=== PATIENT | female | born 1940 | race Caucasian/White ===

== ENCOUNTER 2016-10-11 12:58 | Emergency (ER) | payer OTHER ==
[~2016-10-11] VITALS: Ht 160 cm; Wt 99.8 kg
[~2016-10-11 12:58] MED LIST: OMEPRAZOLE20 M2 PO
--- NOTE | 2016-10-11 13:09 | ED MVC/FALL/TRAUMA COMPLAINT ---
History of Present Illness General Chief Complaint: Low Back Pain/Injury Stated Complaint: FALL,BACK PAIN Source: patient, old records Exam Limitations: no limitations Vital Signs & Intake/Output Vital Signs & Intake/Output Vital Signs Date Time Temp Pulse Resp B/P Pulse O2 O2 Flow FiO2 Ox Delivery Rate 10/11 1444 97.1 67 16 145/62 95 Room Air 10/11 1300 97.4 88 16 164/81 96 Room Air Allergies Coded Allergies: No Known Allergies (10/11/16) Reconcile Medications Omeprazole 20 MG CAPSULE.DR 1 CAP PO DAILY REFLUX (Reported) Tramadol HCl 50 MG TABLET 1-2 TAB PO Q6 PRN pain Triage Note: C/O RIGHT SIDED FLANK/SIDE PAIN S/P FALL 1 WEEK AGO. FALL FROM SEATED POSITION TO GROUND. -LOC-HEADSTRIKE. TYLENOL #3 WITH NO RELIEF. TOOK TRAMADOL WITH MOD RELIEF. PAIN HAS BEEN UNCHANGED Triage Nurses Notes Reviewed? yes HPI: Patient is a 76 year old female presents complaining of severe back pain and right flank pain s/p fall. Patient was getting out of a [place] at a restaurant 7 days ago when she fell. Pain is 5/10 at rest, 10/10 with movement. Patient took Tylenol #3 with no improvement. Took Tramadol 2 days ago with moderate improvement. Patient denies head injury, numbness, weakness, incontinence, hematuria. (LIZZY WALKER) Past History Travel History Traveled to [place] past 21 day No Medical History Any Pertinent Medical History? see below for history Neurological: NONE EENT: NONE Cardiovascular: HIGH CHOLESTEROL Respiratory: NONE Gastrointestinal: NONE Hepatic: NONE Renal: NONE Musculoskeletal: NONE Psychiatric: NONE Endocrine: hypothyroidism Blood Disorders: NONE Cancer(s): NONE DELIVERY MGR/Reproductive: NONE Surgical History Surgical History: cholecystectomy, thyroidectomy, LUMBAR SURGERY Psychosocial History What is your primary language Kazakh Tobacco Use: Quit >30 days ago ETOH Use: occasional use Illicit Drug Use: denies illicit drug use Family History Hx Contributory? No (LIZZY WALKER) Review of Systems Review of Systems Constitutional: Denies: chills, fever. Eyes: Reports: no symptoms. Ears, Nose, Throat, Mouth: Reports: no symptoms. Respiratory: Reports: cough. Denies: short of breath, sputum production. Cardiovascular: Denies: chest pain. Gastrointestinal/Abdominal: Reports: abdominal pain (RIGHT FLANK). Genitourinary: Denies: dysuria, hematuria. Musculoskeletal: Reports: see HPI, back pain. Skin: Reports: no symptoms. Neurological/Psychological: Denies: headache, numbness, paresthesia. (LIZZY WALKER) Physical Exam Physical Exam General Appearance: well developed/nourished, alert, awake Head: atraumatic, normal appearance Eyes: Bilateral: normal appearance, PERRL, EOMI. Ears, Nose, Throat, Mouth: hearing grossly normal, moist mucous membrane Neck: normal inspection, supple, full range of motion, no midline tenderness Respiratory: normal breath sounds, no respiratory distress, lungs clear Cardiovascular: regular rate/rhythm Peripheral Pulses: 2+ dorsalis pedis (R), 2+ dorsalis pedis (L) Gastrointestinal: soft, mild right flank tenderness. no rebound, rigidity or guarding Back: hematoma area of L1 to the right of midline with tenderness. right paraspinal tenderness in the area of L3-L5 Extremities: normal range of motion, nontender bilateral lower extremities Neurologic/Psych: no motor/sensory deficits, awake, alert, oriented x 3, normal gait, negative straight leg raise bilaterally Skin: warm/dry Core Measures ACS in differential dx? No Severe Sepsis Present: No Septic Shock Present: No (LIZZY WALKER) Progress Differential Diagnosis: abd injury, C/T/L spine injury, pelvis injury, retroperitoneal bleed Plan of Care: Laboratory Tests 10/11/16 1323: Urine Color Cancelled, Urine Clarity Cancelled, Urine pH Cancelled, Ur Specific Devils Elbow Cancelled, Urine Protein Cancelled, Urine Ketones Cancelled, Urine Nitrite Cancelled, Urine Bilirubin Cancelled, Urine Urobilinogen Cancelled, Ur Leukocyte Esterase Cancelled, Ur Microscopic Cancelled, Urine Hemoglobin Cancelled, Urine Glucose Cancelled Discussed with Dr. Lema. 1420: Patient resting on stretcher, no apparent distress currently. Awaiting CT scan results. 1500: Results of CT scan discussed with patient. No acute neurologic abnormalities. Appears stable for discharge. Has an appointment with her primary care doctor on . (LIZZY WALKER) Diagnostic Imaging: Viewed by Me: CT Scan. Discussed w/RAD: CT Scan. Radiology Impression: PATIENT: LLOYD DUNNE PRESENT AGE: 76 PATIENT ACCOUNT NO: [id number] : 40 LOCATION: [facility] ORDERING PHYSICIAN: LIZZY JOSEPH SERVICE DATE: 10/11/16 EXAM TYPE: CAT - CT ABD & PELVIS W/O IV CONTRAS EXAMINATION: CT ABDOMEN AND PELVIS WITHOUT CONTRAST CLINICAL INFORMATION: 76-year-old female with history of fall, presented with severe low back pain and right flank pain. COMPARISON: None TECHNIQUE: Multidetector volumetric imaging was performed from the superior aspect of the liver through the pubic symphysis. Sagittal and coronal reformatted images were obtained on the technologist's workstation. DLP: 857.37 mGy-cm. FINDINGS: LUNG BASES: The visualized lung bases are unremarkable. LIVER, GALLBLADDER, AND BILIARY TREE: The liver is normal in size, shape, and attenuation. No focal hepatic lesion or biliary ductal dilatation is present. The gallbladder is surgically absent. PANCREAS: Unremarkable. SPLEEN: Calcified splenic granulomas are noted. ADRENAL GLANDS: Unremarkable. KIDNEYS AND URETERS: Bilateral renal cortical hypodensities are present, measures 3.3 x 3.1 cm at the superior pole of the left kidney with Hounsfield value of 4, consistent with a cyst, measures 2.3 x 2.0 cm with Hounsfield value of 10 at mid anterior cortex of the right kidney, consistent with cyst. There is another exophytic approximately 1.3 cm nodular hypodensity noted at the superior posterior cortex of the right kidney with Hounsfield value of 3, consistent with another cyst. Both renal collecting system and both ureters appear decompressed. BLADDER: Unremarkable. GASTROINTESTINAL TRACT: Colonic diverticulosis related changes are noted within the large bowel, specifically descending and sigmoid colon. Similar lesser diverticulosis related changes are also noted within the transverse colon. The appendix is visualized, appear unremarkable. The small bowel loops are decompressed. The stomach is decompressed. There is a small sliding hiatal hernia noted. ABDOMINAL WALL: No significant hernia is appreciated. LYMPH NODES: Normal. VASCULAR: Diffuse atherosclerotic changes are noted within the aorta and is branches without aneurysm formation. PELVIC VISCERA: There is no pelvic mass present. There is no free fluid and/or free air present. The uterus is likely surgically absent, not visualized. RETROPERITONEUM: Specifically, there is no retroperitoneum, intraperitoneal hematoma identified. OSSEOUS STRUCTURES: No evidence of any compression fracture present within the lumbar spine. Moderate degenerative spondylosis related changes are noted at L4-L5 and significant facet degenerative arthritic changes at L4-L5 and L5-S1 bilaterally. IMPRESSION: 1. No acute intra-abdominal and/or intrapelvic pathology is present. 2. Specifically, no CT evidence of any retroperitoneal, intraperitoneal hematoma or pelvic hematoma visualized. Moderate diffuse osteopenia and multilevel degenerative spondylosis related changes are noted in the spine. 3. Bilateral cortical renal cysts, surgically absent gallbladder and calcified splenic granulomas are also noted. DICTATED BY: DESIREE HUBER MD DATE/TIME DICTATED:1413 RIM FIRE CHARGER OPERATOR:ZAIN DATE/TIME TRANSCRIBED:10/11/161413 CONFIDENTIAL, DO NOT COPY WITHOUT APPROPRIATE AUTHORIZATION. <Electronically signed in Other Vendor System> SIGNED BY: DESIREE HUBER MD 10/11/16 2683 (LIZZY WALKER) Departure Departure Time of Disposition: 1505 Disposition: HOME OR SELF CARE Condition: Stable Clinical Impression Primary Impression: Traumatic hematoma of lower back Secondary Impressions: Lumbar strain Referrals: OSCAR HYDE,THONG FLOR MD,MAnselmo ROBERTO (PCP/Family) Additional Instructions: Rest, apply heat to the affected areas for 20 minutes 4-5 times a day. Follow up with Dr. lFor on as scheduled. Also follow up with your orthopedist if no improvement within 3-5 days. . Departure Forms: Customer Survey General Discharge Information Prescriptions: Current Visit Scripts Tramadol HCl 1-2 TAB PO Q6 PRN pain #20 TAB (LIZZY WALKER) PA/PLANT CHANGER Co-Sign Statement Statement: ED Attending supervision documentation- [X] I saw and evaluated the patient. I have also reviewed all the pertinent lab results and diagnostic results. I agree with the findings and the plan of care as documented in the PA's/PLANT CHANGER's documentation. [X] I have reviewed the ED Record and agree with the PA's/PLANT CHANGER's documentation. [] Additions or exceptions (if any) to the PAs/PLANT CHANGER's note and plan are summarized below: [] (VIV HYDE,KD [place])
[2016-10-11 14:44] VITALS: BP 145/62
--- NOTE | 2016-10-11 14:58 | CT SCAN REPORT ---
EXAMINATION: CT ABDOMEN AND PELVIS WITHOUT CONTRAST CLINICAL INFORMATION: 76-year-old female with history of fall, presented with severe low back pain and right flank pain. COMPARISON: None TECHNIQUE: Multidetector volumetric imaging was performed from the superior aspect of the liver through the pubic symphysis. Sagittal and coronal reformatted images were obtained on the technologist's workstation. DLP: 857.37 mGy-cm. FINDINGS: LUNG BASES: The visualized lung bases are unremarkable. LIVER, GALLBLADDER, AND BILIARY TREE: The liver is normal in size, shape, and attenuation. No focal hepatic lesion or biliary ductal dilatation is present. The gallbladder is surgically absent. PANCREAS: Unremarkable. SPLEEN: Calcified splenic granulomas are noted. ADRENAL GLANDS: Unremarkable. KIDNEYS AND URETERS: Bilateral renal cortical hypodensities are present, measures 3.3 x 3.1 cm at the superior pole of the left kidney with Hounsfield value of 4, consistent with a cyst, measures 2.3 x 2.0 cm with Hounsfield value of 10 at mid anterior cortex of the right kidney, consistent with cyst. There is another exophytic approximately 1.3 cm nodular hypodensity noted at the superior posterior cortex of the right kidney with Hounsfield value of 3, consistent with another cyst. Both renal collecting system and both ureters appear decompressed. BLADDER: Unremarkable. GASTROINTESTINAL TRACT: Colonic diverticulosis related changes are noted within the large bowel, specifically descending and sigmoid colon. Similar lesser diverticulosis related changes are also noted within the transverse colon. The appendix is visualized, appear unremarkable. The small bowel loops are decompressed. The stomach is decompressed. There is a small sliding hiatal hernia noted. ABDOMINAL WALL: No significant hernia is appreciated. LYMPH NODES: Normal. VASCULAR: Diffuse atherosclerotic changes are noted within the aorta and is branches without aneurysm formation. PELVIC VISCERA: There is no pelvic mass present. There is no free fluid and/or free air present. The uterus is likely surgically absent, not visualized. RETROPERITONEUM: Specifically, there is no retroperitoneum, intraperitoneal hematoma identified. OSSEOUS STRUCTURES: No evidence of any compression fracture present within the lumbar spine. Moderate degenerative spondylosis related changes are noted at L4-L5 and significant facet degenerative arthritic changes at L4-L5 and L5-S1 bilaterally. IMPRESSION: 1. No acute intra-abdominal and/or intrapelvic pathology is present. 2. Specifically, no CT evidence of any retroperitoneal, intraperitoneal hematoma or pelvic hematoma visualized. Moderate diffuse osteopenia and multilevel degenerative spondylosis related changes are noted in the spine. 3. Bilateral cortical renal cysts, surgically absent gallbladder and calcified splenic granulomas are also noted.
[2016-10-11] MEDS ORDERED: TRAMADOL HCL50 M1 PO (15:07)
[2016-12-16] MEDS ORDERED: LEVOTHYROXINE100 MC1 PO (13:04)
[2016-12-16] MEDS ORDERED: ASPIRIN EC81 M1 PO (13:04)
[2016-12-16] MEDS ORDERED: CALTRATE 600 +1 EACH PO (13:05)
[2016-12-16] MEDS ORDERED: SIMVASTATIN10 M1 PO (13:05)
[2016-12-16] MEDS ORDERED: ZYRTEC10 M3 PO (13:05)
== END 2016-10-11 15:16 ==
LOC: ERH 12:58
DX: S39.012A Strain of muscle, fascia and tendon of lower back, initial encounter (principal); S30.0XXA Contusion of lower back and pelvis, initial encounter; W19.XXXA Unspecified fall, initial encounter
CPT/HCPCS: 74176

== ENCOUNTER → 2016-12-21 | Day surgery (SDC) | payer OTHER ==
[~2016-12-21] VITALS: Ht 160 cm; Wt 98.4 kg
[~2016-12-21] MED LIST changes: +ASPIRIN EC81 M1 PO; +CALTRATE 600 +1 EACH PO; +LEVOTHYROXINE100 MC1 PO; +SIMVASTATIN10 M1 PO; +TRAMADOL HCL50 M1 PO; +ZYRTEC10 M3 PO
--- NOTE | 2016-12-21 15:15 | Operative Report ---
Operative/Inv Procedure Report Surgery Date: 12/21/16 Name of Procedure: #1 right knee arthroscopic partial medial meniscectomy #2 right tibial plateau stress microfracturing biologic internal fixation/ subchondroplasty Accufill calcium phosphate bone substitute implant right tibia Pre-Operative Diagnosis: #1 right knee medial meniscal tear #2 right knee osteoarthritis primary #3 insufficiency/stress fracture right tibial plateau Post-Operative Diagnosis: Same Estimated Blood Loss: scant Surgeon/Priming Mixture Carrier: OSCAR HYDE,THONG Anesthesia: laryngeal mask airway Implants: Accufill calcium phosphate bone substitute implant Drains: None Specimens: None Tourniquet: None used Complications: None Condition: Stable Operative Indication: Patient is a 76-year-old woman who has a long history of right knee pain. Treatment included activity modification, medication, injection without significant long-term relief. Due to minimal findings on plain x-ray, patient underwent MRI evaluation which revealed's findings consistent with SONK mechanism/stress fracture medial tibial plateau. Patient was treated conservatively with a building construction supervisor brace as well as activity modification. Patient did improve with these conservative measures but experience recurrence of her symptoms 2 months later. Due to the original findings on imaging the MRI was repeated and similar but slightly progressed findings were noted of the medial tibial plateau. Due to these findings and patient's lack of improvement with subsequent treatment similar to her previous experience, she wished to proceed with arthroscopic management of the problem. I do feel that her symptoms were secondary to the meniscal pathology but also the stress fracture/insufficiency findings on MRI of the medial tibial plateau. Therefore I recommended consideration of the subcondroplasty procedure for the abnormal plateau findings. We discussed risks, benefits and expectations of surgical as well as nonsurgical options which included but not limited to persistent knee pain, need for subsequent surgery, progression of her osteoarthritis, anesthesia risks. She wished to proceed with the arthroscopic management the problem as well as evaluation for the possibility of the subchondral portion of the procedure. Operative/Procedure Note Note: Patient was brought to the operating room and transferred to the operating table. Once under appropriate anesthesia the right lower extremity was prepped and draped in standard fashion. Preoperative IV antibiotics were given prophylactically. Standard infrapatellar lateral portal site was established. Scope was inserted. Patellofemoral compartment was evaluated area chondromalacia of the patellofemoral compartment noted grade 2 changes. I entered the medial compartment. No evidence of pathologic plica. The medial meniscus was evaluated from anterior horn to posterior horn under direct visualization. There appeared to be a posterior horn tear which was complex and degenerative in nature. I established a medial infrapatellar portal site and was able to directly probe and confirm the presence of the medial meniscal tear. I used straight biters followed by shaver to complete the partial medial meniscectomy. There was grade 3-4 chondral changes along the posterior medial aspect of the tibial plateau there was no unstable articular cartilage in this area. I entered the notch the ACL was found to be intact. Leg was placed into a figure 4 position and the lateral compartment was visualized which appeared to be intact as well no evidence of lateral meniscal of allergy or any significant chondral changes in the lateral compartment. I went up the lateral gutter and no evidence of loose bodies. I should mention there was a fairly large chondral fragment that was floating in the supra patellar pouch. I went up to the supra patellar pouch and was able to locate this fragment and using the shaver was able to break it up and removed from the knee. Copious irrigation the knee followed. At this stage I turned my attention to the stress fracture of the medial tibia. Using fluoroscopic live imaging and correlating with the position of the lesion on MRI I was able to locate in place the 3-hole side injecting Accuport drill cannula/leave in position for injection of the area in question on MRI. I visualized in both AP and lateral planes. I was satisfied with position of the port after making a small stab incision to insert the port and the cannula all the way down to bone on the medial aspect of the plateau. A total of 5 mL of the Accufill bone substitute implant was injected a different trajectories through this 3-hole side port. As the injection was done it was visualized on fluoroscopic imaging. The area of injection could be confirmed with detail. The cannula and drill itself was placed proximally a centimeter from the subchondral bone. Once the bone substitute implant had been injected, the remaining liquid substitute was pushed through the cannula and allowed to sit there for 10 minutes. This allowed the implant to harden in the subchondral area. Once this was done, I reinserted scope through the lateral portal and was able to visualize the medial compartment to make sure there was no extravasation of the bone substitute implant into the joint space. The area in question was visualized directly and probed. I was satisfied with the appearance. Took the knee through range of motion after fluid and inserts were removed. Smooth range of motion was noted. Fluoroscopic images were taken in the AP and lateral planes. I was satisfied with the area of injection. After copious irrigation of the knee fluid and instruments were removed and portal sites were closed including the injection site along the medial tibial plateau. This was done with interrupted nylon suture. Appropriate dressings were applied and patient was awakened and taken to recovery room in good condition. No intraoperative complications. Blood loss was minimal Discharge Disposition: PACU
--- NOTE | 2016-12-21 17:54 | RADIOLOGY REPORT ---
EXAMINATION: XR KNEE, RIGHT CLINICAL INFORMATION: History of insufficiency fracture of medial tibial plateau. COMPARISON: Knee MRI of 09/16/2016. TECHNIQUE: C-arm fluoroscopic imaging of the right knee was utilized and 8 spot fluoroscopy images are submitted into the electronic picture archive. Fluoroscopy time: 3.6 minutes. Dose: 16.1 mGy. FINDINGS: Fluoroscopic images were obtained during injection of material/cement into the subchondral region of the medial tibial condyle. Please refer to the operative report. IMPRESSION: Fluoroscopic imaging support provided to the operating room during the subchondroplasty procedure for the right knee.
== END ==
LOC: STS 03:06
DX: M84.361A Stress fracture, right tibia, initial encounter for fracture (principal); X58.XXXA Exposure to other specified factors, initial encounter; M17.11 Unilateral primary osteoarthritis, right knee; M23.221 Derangement of posterior horn of medial meniscus due to old tear or injury, right knee; J44.9 Chronic obstructive pulmonary disease, unspecified; E03.9 Hypothyroidism, unspecified; Z87.891 Personal history of nicotine dependence; Z79.82 Long term (current) use of aspirin
CPT/HCPCS: 73560-RT; J0131; J0690; J2250